=== PATIENT | female | born 1980 | race Caucasian/White ===

== ENCOUNTER 2017-02-15 06:11 | Emergency (ER) | payer OTHER ==
[~2017-02-15] VITALS: Ht 162.6 cm; Wt 106.2 kg
[~2017-02-15 06:11] MED LIST: ALBENZA200 MG PO; AMOXICILLIN500 M1 PO; ANTIVERT25 MG PO; ANUSOL HC,ANUCO25 MG PR; ATARAX,VISTARIL25 MG PO; ATIVAN1 MG PO; CHILD ASPIRIN81 M1 PO; CLOBETASOL PRO118 ML TP; HYDROCHLOROTH12.5 M3 PO; HYDROCHLOROTHIA25 MG PO; IBUPROFEN600 MG PO; K-DUR20 MEQ PO; KEFLEX500 MG PO; KLONOPIN1 M2 PO; LEXAPRO10 MG PO; LEXAPRO20 MG PO; LITE COAT ASPI325 M1 PO; LOPRESSOR25 MG PO; METOPROLOL SUCC25 MG PO; MOTRIN800 MG PO; OMEPRAZOLE20 M2 PO; POTASSIUM CHLO20 ME1 PO; PRILOSEC40 MG PO; RANITIDINE HCL75 MG PO; TORADOL10 MG PO; ULTRAM50 MG PO; URSODIOL300 MG PO; VICODIN 5-3001 EACH PO; VITAMIN A8000 UNIT PO; VITAMIN E400 UNIT PO; ZESTORETIC,P1 TABLE1 PO; ZOLOFT50 MG PO
[2017-02-15 07:09] LABS: BASOPHIL COUNT 0.1 K/uL (0-0.1); EOSINOPHIL COUNT 0.2 K/uL (0-0.3); HEMATOCRIT 37.8 % (36.0-46.0); IMMATURE GRANULOCYTE (%) 0.3 % (0.0-0.7); INSTRUMENT ABS NEUTROPHIL CT 3.6 K/uL; LYMPHOCYTE COUNT 2.7 K/uL (1.0-2.8); MCH 25.8 PG (29.0-34.0); MCHC 32.5 G/DL (30.0-36.0); MCV 79.2 FL (83-99); MEAN PLAT.VOLUME 9.8 uM^3 (9.5-12.4); MONOCYTE (%) 9.1 % (3-12); MONOCYTE COUNT 0.7 K/uL (0-0.8); NEUTROPHIL (%) 49.2 % (45-76); NEUTROPHIL COUNT 3.6 K/uL (1.8-6.4); PLATELET COUNT 294 K/uL (156-360); RBC DIS.WIDTH-CV 13.7 % (11.8-14.6); RBC DIS.WIDTH-SD 39.5 % (39-53); RED BLOOD COUNT 4.77 M/uL (3.80-5.20)
[2017-02-15 07:12] LABS: WHITE BLOOD COUNT 7.3 K/uL (4.1-10.2)
[2017-02-15 07:28] LABS: ANION GAP 10 MEQ/L (2-14); CHLORIDE 106 MEQ/L (99-109); POTASSIUM 3.5 MEQ/L (3.7-5.4); SAMPLE HEMOLYSIS CHECK 0; SAMPLE ICTERIC CHECK 0; SAMPLE LIPEMIA CHECK 0; SODIUM 142 MEQ/L (136-147)
[2017-02-15 07:34] LABS: GFR ESTIMATE (CALCULATED) > 59 mL/min/; GLUCOSE 108 mg/dL (70-99); UREA NITROGEN (BUN) 15 mg/dL (9-23)
[2017-02-15 08:42] VITALS: BP 134/59
== END 2017-02-15 08:56 | disposition home or self-care (01) ==
LOC: EME 06:11
PROVIDERS: Emergency Medicine
DX: E87.6 Hypokalemia (principal); F41.1 Generalized anxiety disorder; R11.0 Nausea; I10 Essential (primary) hypertension; L40.50 Arthropathic psoriasis, unspecified; F17.200 Nicotine dependence, unspecified, uncomplicated
CPT/HCPCS: 80048; 85025; 99281; 99285; J7030

== ENCOUNTER 2017-07-12 18:30 | Emergency (ER) | payer OTHER ==
[~2017-07-12] VITALS: Ht 162.6 cm; Wt 95.5 kg
[~2017-07-12 18:30] MED LIST changes: +NORVASC5 MG PO
[2017-07-12 19:12] LABS: HEMATOCRIT 38.8 % (36.0-46.0); MCH 24.5 PG (29.0-34.0); MCHC 32.2 G/DL (30.0-36.0); MCV 76.1 FL (83-99); MEAN PLAT.VOLUME 10.6 uM^3 (9.5-12.4); PLATELET COUNT 279 K/uL (156-360); RBC DIS.WIDTH-CV 15.2 % (11.8-14.6); RBC DIS.WIDTH-SD 41.4 % (39-53); WHITE BLOOD COUNT 10.8 K/uL (4.1-10.2)
[2017-07-12 19:21] LABS: CHLORIDE 108 mEq/L (99-109); POTASSIUM 3.6 mEq/L (3.7-5.4); SODIUM 139 mEq/L (136-147)
[2017-07-12 19:22] LABS: GLUCOSE 84 mg/dL (70-99)
[2017-07-12 19:24] LABS: ANION GAP 9 MEQ/L (2-14)
[2017-07-12 19:26] LABS: GFR ESTIMATE (CALCULATED) > 59 mL/min/
[2017-07-12 19:27] LABS: UREA NITROGEN (BUN) 12 mg/dL (9-23)
[2017-07-12 19:33] LABS: TROP-I INTERPRETATION NEGATIVE; TROPONIN-I < 0.01 ng/mL (0.0-0.30)
[2017-07-12 20:51] LABS: QUANTITATIVE HCG < 4.0 MIU/ML
[2017-07-12 23:29] VITALS: BP 140/72
== END 2017-07-12 23:29 | disposition home or self-care (01) ==
LOC: EME 18:30
PROVIDERS: Physician Assistant Medical
DX: R07.9 Chest pain, unspecified (principal); R20.0 Anesthesia of skin; I10 Essential (primary) hypertension; F17.200 Nicotine dependence, unspecified, uncomplicated; Z32.02 Encounter for pregnancy test, result negative; I34.1 Nonrheumatic mitral (valve) prolapse; Z86.73 Personal history of transient ischemic attack (TIA), and cerebral infarction without residual deficits; F41.9 Anxiety disorder, unspecified; F32.9 Major depressive disorder, single episode, unspecified; Z79.82 Long term (current) use of aspirin
CPT/HCPCS: 70450; 80048; 84484; 84702; 85027; 93005; 99281; 99285

== ENCOUNTER 2017-08-30 14:27 | Emergency (ER) | payer OTHER ==
[~2017-08-30] VITALS: Ht 162.6 cm; Wt 93.5 kg
[2017-08-30 14:30] VITALS: BP 158/117
[2017-08-30] MEDS ORDERED: BACTRIM,SEPT1 TABLET PO (17:10)
[2017-08-30] MEDS ORDERED: KEFLEX500 MG PO (17:10)
== END 2017-08-30 17:19 | disposition home or self-care (01) ==
LOC: EME 14:27
PROC: 0U9MXZZ Drainage of Vulva, External Approach (ICD-10-PCS; principal; 2017-08-30)
DX: N76.4 Abscess of vulva (principal); I10 Essential (primary) hypertension; K76.9 Liver disease, unspecified; Z79.82 Long term (current) use of aspirin; F17.200 Nicotine dependence, unspecified, uncomplicated
CPT/HCPCS: 87070; 87075; 87076; 87185; 87205; 99281; 99284

== ENCOUNTER 2017-11-27 23:19 | Emergency (ER) | payer OTHER ==
[~2017-11-27] VITALS: Ht 162.6 cm; Wt 96.1 kg
[~2017-11-27 23:19] MED LIST changes: +BACTRIM,SEPT1 TABLET PO
[2017-11-28] MEDS ORDERED: ULTRAM50 MG PO (00:54)
[2017-11-28 01:06] VITALS: BP 140/90
== END 2017-11-28 01:07 | disposition home or self-care (01) ==
LOC: EME 23:19
DX: S20.212A Contusion of left front wall of thorax, initial encounter (principal); Y04.2XXA Assault by strike against or bumped into by another person, initial encounter; Z73.3 Stress, not elsewhere classified; I10 Essential (primary) hypertension; Z86.73 Personal history of transient ischemic attack (TIA), and cerebral infarction without residual deficits; Z79.82 Long term (current) use of aspirin; F17.210 Nicotine dependence, cigarettes, uncomplicated; Z71.6 Tobacco abuse counseling
CPT/HCPCS: 71046; 99281; 99283